=== PATIENT | female | born 1960 | race Caucasian/White ===

== ENCOUNTER 2016-10-17 15:04 | Inpatient (IN) | payer OTHER ==
[~2016-10-17] VITALS: Ht 149.9 cm; Wt 51.0 kg
--- NOTE | ~2016-10-17 | OR ---
PATIENT'S NAME: [facility] AGE: 56 Y [address] ROOM: [place] [address] LOCATION: GPCU ADMIT DATE: 10/17/2016 OR/Procedure Report DISCHARGE DATE: FAMILY PHYSICIAN: Jose Rivero MD ATTENDING PHYSICIAN: Jose Rivero SURGEON: Tj Moulton MD GLASS BREAKER: None. DATE OF PROCEDURE: 10/25/2016 PREOPERATIVE DIAGNOSIS: Laryngeal edema. POSTOPERATIVE DIAGNOSIS: Laryngeal edema. PROCEDURES: 1. Microdirect laryngoscopy with biopsy. 2. Injection of steroids into the larynx. ANESTHESIA: General endotracheal. COMPLICATIONS: None. BLOOD LOSS: 2 mL. SPECIMENS: Right supraglottic tissue for frozen. FINDINGS: Frozen section was negative for malignancy. Edema was noted. INDICATION: The patient is a 56-year-old female, who has been seen as an outpatient with significant supraglottic and laryngeal edema affecting her speech and swallow. She ultimately required admission due to poor p.o. intake as well as chest pain. She was planned for a microdirect laryngoscopy with biopsy after flexible fiberoptic laryngoscopy as an outpatient did reveal significant edema of the supraglottis. Risks, benefits, and alternatives were discussed. She provided informed consent. DESCRIPTION OF PROCEDURE: The patient was brought to the operative suite and placed on the table in supine position. All pressure points were padded. Time-out was performed correctly identifying the patient and procedure. General endotracheal anesthesia was initiated. The patient was rotated 90 degrees counter clockwise. The anterior commissure laryngoscope was utilized for evaluation after a mouth guard was placed. Complete evaluation of the oral cavity, oropharynx, hypopharynx, and larynx was performed. It did not reveal any areas of significant mucosal ulceration, mass, or asymmetry. The previously noted right greater than left supraglottic edema along the arytenoid complex area, epiglottic folds, and posterior commissure was PATIENT'S NAME: [facility] AGE: 56 Y [address] ROOM: [place] [address] LOCATION: GPCU ADMIT DATE: 10/17/2016 OR/Procedure Report DISCHARGE DATE: FAMILY PHYSICIAN: Jose Rivero MD ATTENDING PHYSICIAN: Jose Rivero significantly improved, however, there were remained moderate amount of edema in this location. There was no obvious mucosal changes here in the subglottis. The endotracheal tube was removed for an apneic examination. Biopsies were obtained of the posterior commissure, arytenoid mucosa, and aryepiglottic fold from the right side; and the endotracheal tube was replaced. These were sent for frozen section and the 2 pieces which were examined by the pathologist did not reveal any evidence of malignancy, the rest were submitted for permanent. We then elected to inject 40 mg per mL of Kenalog, a total of 1 mL was injected into the right arytenoid complex as well as left arytenoid complex and central posterior commissure soft tissues. The scope was retracted, the endotracheal tube was left in place. The patient was rotated back to Anesthesia for extubation recovery. MD MALCOM ZAMORA/ash /[id number] d: 10/25/16 1919 t: 11/22/16 1043, OPERATIVE SUMMARY
--- NOTE | ~2016-10-17 | CON ---
PATIENT'S NAME: [facility] AGE: 56 Y [address] ROOM: [place] [id number] LOCATION: GPCU ADMIT DATE: 10/17/2016 Consultation DISCHARGE DATE: 10/27/2016 FAMILY PHYSICIAN: Jose Rivero MD ATTENDING PHYSICIAN: Jose Rivero DATE OF CONSULTATION: 10/20/2016 REFERRING PHYSICIAN: Coral Burkett MD INDICATION: Pneumothorax. HISTORY OF PRESENT ILLNESS: This is a 56-year-old female with history of COPD, tobacco use, and spinal stenosis who presented with chest pain, 15-pound weight loss, and dysphagia. EKG showed non-STEMI; however, she was taken to the labeler and heart cath was negative. She has also had an EGD recently, which was negative. Recent ENT evaluation showed vocal cord swelling and adenopathy. Neck scan revealed a left upper lobe lesion. Biopsy was performed yesterday on the left upper lobe lesion without complications; however, abdominal x-ray performed to confirm Dobhoff placement today, demonstrated worsening left pneumothorax taking up about 30% of the lung. At the time of evaluation, the patient reports shortness of breath and pain with inspiration now. She previously did not have these symptoms yesterday. She otherwise denies cough, wheezing, or hemoptysis. She does report dysphagia. PAST MEDICAL HISTORY: COPD, chronic bronchitis, allergic rhinitis, hypertension, restless legs syndrome, chronic back pain with spinal stenosis, and stress incontinence. PAST SURGICAL HISTORY: Include appendectomy, back surgery, and hysterectomy. ALLERGIES: SEE MAR. MEDICATIONS: See MAR. FAMILY HISTORY: Significant for cancer, COPD, diabetes, and stroke. SOCIAL HISTORY: The patient currently uses 1 pack per day of cigarettes and she has for "many years." She denies alcohol use. PATIENT'S NAME: [facility] AGE: 56 Y [address] ROOM: [address] [place] [id number] LOCATION: GPCU ADMIT DATE: 10/17/2016 Consultation DISCHARGE DATE: 10/27/2016 FAMILY PHYSICIAN: Jose Rivero MD ATTENDING PHYSICIAN: Jose Rivero REVIEW OF SYSTEMS: A 12-point review of systems is negative except for what is noted in HPI. PHYSICAL EXAMINATION: VITAL SIGNS: Blood pressure 124/65, pulse 82, respirations 28, temperature 98.1, she is 91% on room air. GENERAL: This is a 56-year-old female who is well-developed, well-nourished, alert, and oriented x3 and appears in no acute distress at the time of exam. HEENT: Head: Normocephalic and atraumatic. Eyes are clear. NECK: Supple. No adenopathy. No carotid bruits or JVD. LUNGS: Diminished on the left. Clear on the right. HEART: Regular rate and rhythm without murmur, gallop, or rub. ABDOMEN: Soft, nontender, and nondistended. Bowel sounds x4. EXTREMITIES: No cyanosis, clubbing, or edema. DIAGNOSTIC DATA: Sodium 141, potassium 3.5, BUN 8, creatinine 0.9. ASSESSMENT: 1. Left pneumothorax. 2. Left lung nodule 15 mm, status post biopsy. 3. Chronic obstructive pulmonary disease without exacerbation. 4. Dysphagia. 5. Vocal cord swelling. 6. Tobaccoism. PLAN: We will plan for Dr. Ramsey to evaluate and place a chest tube to relieve the left pneumothorax. Further recommendations will be made pending his evaluation and the course of her stay. Thank you for the consult and the opportunity to participate in the patient's care. SHAKA SERNA APRN FOR PAMELA RAMSEY, MR/modl /[id number] d: 11/06/16 0025 t: 11/06/16 1632, CONSULTATION REPORT
--- NOTE | ~2016-10-17 | ECHO ---
Transthoracic Echocardiography Report (TTE) Demographics Patient Name JIM WHITE Date of Study 10/18/2016 Patient Number [id number] Visit Number [id number] Date of 1960 Room Number G6325 Gender Female Number Age 56 year(s) Referring Kwadwo Moncada Chainstitch Tunnel Elastic Operator Maurice Cornejo Physician MD Ana M Amaral RVT Mat Stovall MD Physician Interpreting Kwadwo Moncada Weaving Professor Physician Supervising Ordering Kwadwo Moncada MD/MLP Physician Nurse Stress Steel Box Toe Inserter Conclusions Contractility Score Summary Normal Left Ventricular contractility was noted. Summary The estimated left ventricular ejection fraction is 60%.The left ventricle is normal in size with normal wall thickness and WM. MAC. The aortic valve is mildly sclerotic. There is mild aortic regurgitation by color Doppler. Procedure Type of Study TTE procedure:2D Echocardiogram, M-Mode, Doppler , Color Doppler. Procedure Date Date: 10/18/2016 Start: 01:25 PM Study Location: Inpatient Portable Technical Quality: Adequate visualization Indications:Chest pain. Additional Indications:LV lobe mass Appropriate Use Criteria: 9 Patient Status: Routine HR: 83 bpm BP: 154/78 mmHg Allergies - No known allergies. M-Mode/2D Measurements LV Diastolic Dimension: 3.69 cm LV Systolic Dimension: 2.09 cm LV Septum Diastolic: 0.9 cm LV PW Diastolic: 1.01 cm AO Root Dimension: 2.3 cm Cardiac Output: 3.72 l/min LA Dimension: 2.4 cm EF Estimated: 60 % LVOT: 1.8 cm LVOT VTI: 17.6 cm RV Base: 2.46 cm LV Stroke volume: 44.76 ml RV Length: 6.24 cm TAPSE: 2.22 cm TDI-S': 13.9 cm/s Doppler Measurements AV Peak Velocity: 1.44 m/s MV Peak E-Wave: 0.5 m/s AV Peak Gradient: 8.29 mmHg MV Peak A-Wave: 0.62 m/s AV Mean Gradient: 5 mmHg MV E/A Ratio: 0.81 LVOT Peak Velocity: 1 m/s MV P1/2t: 86 msec AV P1/2t: 546 msec PV Peak Velocity: 0.8 m/s E' Septal Velocity: 0.05 m/s PV Peak Gradient: 2.56 mmHg E' Lateral Velocity: 0.09 m/s A' Septal Velocity: 0.1 m/s A' Lateral Velocity: 0.17 m/s Findings Left Ventricle Normal left ventricle size and function. Right Ventricle Normal right ventricle structure and function. Left Atrium Normal left atrial size. Right Atrium Normal right atrial size. IVC measures .93 cm with inspiratory collapse. Mitral Valve Mild mitral annular calcification. Aortic Valve The aortic valve is mildly sclerotic. There is mild aortic regurgitation by color Doppler. Tricuspid Valve Normal tricuspid valve structure and function. Pulmonic Valve The pulmonic valve is not well visualized. Pericardial Effusion No evidence of pericardial effusion. Miscellaneous Visualized portions of the aortic root and ascending aorta appear normal in size. Pleural Effusion No evidence of pleural effusion. Contractility Score LV regional wall motion:(0-Non visualized 1-Normal 2-Hypokinesis 3-Akinesis 4-Dyskinesis 5-Aneurysm) Signature dtt: Coral Burkett dtd: 10/18/16 1325 Physician Self Edit
--- NOTE | ~2016-10-17 | CON ---
PATIENT'S NAME: [facility] AGE: 56 Y [address] ROOM: [place] [address] LOCATION: GPCU ADMIT DATE: 10/17/2016 Consultation DISCHARGE DATE: FAMILY PHYSICIAN: Jose Rivero MD ATTENDING PHYSICIAN: Jose Rivero DATE OF CONSULTATION: 10/23/2016 REFERRING PHYSICIAN: Coral Burkett MD REFERRING PHYSICIAN: Jose Rivero MD CHIEF COMPLAINT: Dysphagia. HISTORY OF PRESENT ILLNESS: The patient is a 56-year-old female, known to me from visits in the last 2 weeks as an outpatient in my ENT Clinic for dysphagia. She has since been admitted with acute dysphagia, weakness, weight loss as well as chest pain. Remainder of her hospital course from her admission on October 17 to today is detailed in other notes. Since my last visit with her, she states that her dysphagia has worsened. Previously, I had treated her with an outpatient steroid taper, which did not assist her. She suffered a 12-pound weight loss over 2 weeks at my last visit with her last week. I was concerned she would require admission and NG-tube placement. Flexible laryngoscopy had again revealed right greater than left laryngeal edema as well as pooling in the piriform sinus. She also had a left-sided lung nodule, which had been identified on a CT scan in the ER, that required further followup. I am aware that she has undergone a biopsy as well as an NG placement, and I am consulted to follow along during her hospitalization. PAST MEDICAL HISTORY: COPD, chronic bronchitis, allergic rhinitis, hypertension, restless legs, chronic back pain, stress incontinence, tobacco dependence. PAST SURGICAL HISTORY: EGD, appendectomy, back surgery, hysterectomy. MEDICATIONS: See MAR. ALLERGIES: NO KNOWN MEDICAL ALLERGIES. SOCIAL HISTORY: PATIENT'S NAME: [facility] AGE: 56 Y [address] ROOM: [place] [address] LOCATION: GPCU ADMIT DATE: 10/17/2016 Consultation DISCHARGE DATE: FAMILY PHYSICIAN: Jose Rivero MD ATTENDING PHYSICIAN: Jose Rivero She is a long-time smoker starting at age 29, 1 to 2 packs per day, currently reduced now to about 5 cigarettes per day. FAMILY HISTORY: No chronic history of ear, nose, and throat conditions. REVIEW OF SYSTEMS: A 10-point review of systems performed was negative except as per the HPI. PHYSICAL EXAMINATION: VITAL SIGNS: Temperature 98.7, respiratory rate 20, heart rate 76, BP 155/75. GENERAL: She continues to appear quite weak, slightly frail, although with better skin coloration that I had at my last visit with her. She has an NG tube in place. She continues to speak with raspy and slightly weak voice. She has no dysarthria. EARS: Auditory canals are clear. NOSE: NG in the right ear. Otherwise nasal cavity is unremarkable. ORAL CAVITY: Mucous membranes are moist. Tongue is midline and mobile. Oropharynx, widely patent. NECK: Thyroid is not palpable. There is palpable lymphadenopathy scattered in the right neck, specimen level II and III. ASSESSMENT: 1. Laryngeal edema of uncertain etiology, concern for malignancy. 2. Left lung lesion, pathology pending. 3. Acute dysphagia. 4. Weight loss. 5. Tobacco dependence. PLAN: We will continue to plan for microdirect laryngoscopy with biopsy in 2 days on as had been scheduled as an outpatient. She will be n.p.o. and no tube feeds prior. In addition, I discussed that she should continue to attempt oral feedings, and it is okay to maintain nighttime NG-tube feedings at this time. Speech Pathology will follow up with her in the a.m. for a repeat bedside swallow eval, and we will proceed with her feeding schedule from there. I will also start her on a Decadron course for 48 hours to see if this assists with some of her swallowing difficulties temporarily, although the biopsies are pending. All this was discussed with her as well as Dr. Rivero and speech pathologist, and she was in agreement. We did discuss the risks, benefits, and alternatives of the laryngoscopy. She provided informed consent. PATIENT'S NAME: JIM WHITE [facility] AGE: 56 Y [address] ROOM: [address] [place], [place] [address] LOCATION: [facility] ADMIT DATE: 10/17/2016 Consultation DISCHARGE DATE: FAMILY PHYSICIAN: Jose Rivero MD ATTENDING PHYSICIAN: Jose Rivero MD MALCOM ZAMORA/ash /[id number] CC: MD Jose Petersen MD d: 10/23/16 2322 t: 10/25/16 0753, CONSULTATION REPORT
--- NOTE | ~2016-10-17 | ER ---
PATIENT'S NAME: [facility] AGE: 56 Y [address] ROOM: [address] [place] [id number] LOCATION: GPCU ADMIT DATE: 10/17/2016 ER/Outpatient Report DISCHARGE DATE: FAMILY PHYSICIAN: Jose Rivero MD ATTENDING PHYSICIAN: Jose Rivero TIME OF ARRIVAL: 1504 hours. TIME SEEN: 1530 hours. IDENTIFICATION: A 56-year-old female. CHIEF COMPLAINT: Generalized weakness and difficulty swallowing. HISTORY OF PRESENT ILLNESS: The patient is a 56-year-old female who has had some right-sided chest pain, dysphagia, and a 15-pound weight loss over the last couple of months. She has had an evaluation by ENT and noted to have some lymphadenopathy. Had a nasopharyngoscope that showed some swelling of her vocal cords, but no nodules and she had a CT of her neck with IV infiltrated, but did show a stellate lesion in the left upper lung and recommended further follow up with either CT or PET scanning. ALLERGIES: NO KNOWN DRUG ALLERGIES. CURRENT MEDICATIONS: 1. Norvasc. 2. Losartan. 3. Metoprolol. 4. Albuterol. 5. Breo inhaler. 6. Flexeril. 7. [place]. MEDICAL PROBLEMS: Hypertension, spinal stenosis, restless legs syndrome, chronic bronchitis, and COPD. PRIOR SURGERIES: EGD, appendectomy, back surgery, and hysterectomy. PATIENT'S NAME: [facility] AGE: 56 Y [address] ROOM: [address] [place] [address] LOCATION: GPCU ADMIT DATE: 10/17/2016 ER/Outpatient Report DISCHARGE DATE: FAMILY PHYSICIAN: Jose Rivero MD ATTENDING PHYSICIAN: Jose Rivero SOCIAL HISTORY: The patient is . Lives here in [place]. Does not work outside the home. Smokes half pack per day for 27 years. Alcohol use, denies. Drug use, denies. REVIEW OF SYSTEMS: All systems reviewed and negative other than what is noted in the HPI. FAMILY HISTORY: Positive for cancer, COPD, diabetes, and stroke. PHYSICAL EXAMINATION: VITAL SIGNS: Height 4 feet 11 inches and weight 50.9 kg. Blood pressure 159/87, pulse 98, respirations 16, temperature 97, and saturations 95% on room air. GENERAL: A 56-year-old female, in no acute distress. HEENT: Head: Normocephalic, atraumatic. Ears: TMs translucent both ears. Eyes: Pupils equal and reactive to light and accommodation. Extraocular movements intact. Nose: Mucosa pink. No lesions. Mouth: No lesions. Pharynx benign. NECK: Supple. No lymphadenopathy. No thyromegaly. LUNGS: Clear to auscultation. HEART: Regular rate and rhythm. No murmur, rub, or gallop. ABDOMEN: Bowel sounds present. Soft, nondistended, nontender. SKIN: Pantops, warm, and dry. No lesions or rashes noted. NEURO: No focal deficit. DIAGNOSTIC DATA: EKG sinus rhythm at 87 beats per minute. She does have lateral ST-T wave depression and slight in lead 3. No prior EKG available for comparison. Hemoglobin 15.2, hematocrit 45.2, platelets 406, white count 5.6, normal differential. INR 1.1. Sodium 139, potassium 3.2, chloride 100, CO2 of 30, BUN 12, creatinine 0.9, blood sugar 92. Liver enzymes normal. Magnesium 2.1. CPK 81, CK-MB 0.5, troponin 0.052. One view chest x-ray, no acute process, pending radiology over-read. CT scan of the chest, PE protocol, 15 mm stellate nodular lung lesion in the left upper lobe, cannot exclude a malignant lesion, alveolar cell carcinoma could have this type of appearance per Radiology. No PE. IMPRESSION AND PLAN: 1. Stellate left upper lobe lung lesion, recommend biopsy. 2. Dysphagia and generalized weakness. The patient was initiated on IV fluids at 100 mL/h of normal saline. 3. Chronic back pain with spinal stenosis. The patient was given [place] PATIENT'S NAME: JIM WHITE [facility] AGE: 56 Y [address] ROOM: [address] [place], [place] [address] LOCATION: GPCU ADMIT DATE: 10/17/2016 ER/Outpatient Report DISCHARGE DATE: FAMILY PHYSICIAN: Jose Rivero MD ATTENDING PHYSICIAN: Jose Rivreo two tablets here in the ER. 4. Chronic obstructive pulmonary disease. 5. Laryngeal edema followed by ENT. 6. Ischemic EKG changes with elevated troponin. Will be admitted for serial EKG and enzymes. 7. Weight loss and generalized weakness. Plan for admission per Dr. Rivero with cardiology and GI consultation. NAVYA PLAZA MD CAR/modl /[id number] d: 10/18/16 1609 t: 10/18/16 1642, OUTPATIENT REPORT
--- NOTE | ~2016-10-17 | CON ---
PATIENT'S NAME: JIM LAKHANI [facility] AGE: 56 Y [address] ROOM: [address] [place], [place] [address] LOCATION: GPCU ADMIT DATE: 10/17/2016 Consultation DISCHARGE DATE: FAMILY PHYSICIAN: Jose Rivero MD ATTENDING PHYSICIAN: Jose Rivero DATE OF CONSULTATION: 10/18/2016 REFERRING PHYSICIAN: Corla Burkett MD Dear Dr. Rivero: Thank you for asking me to see Mrs Lakhani who is a 56-year-old female patient admitted with chest pain and has [id number]-WS-[id number] elevation UT by EKG and troponin criteria. I am asked to see her in consultation. She had apparently been feeling good about 3 months ago. She started to have trouble with her voice initially and had an ENT consultation followed by difficulty in swallowing which was evaluated by endoscopy. Somewhere along the line, she also started to have significant weight loss of about 12 to 15 pounds with workup showing a left upper lobe mass. In the meantime, for the past 3 days, she has been noticing pains in the right upper extremity radiating to the right neck and right chest for the past 3 weeks. They tend to be intermittent and last for a few minutes, and they are fairly severe, about 8 on a scale of 1 to 10, occurring about 2 times a day, associated with sweating, nausea, and shortness of breath. They seem to occur with any activity, even inside the house walking from one room to another. She does not have any regular exercise program. She denies any paroxysmal nocturnal dyspnea or orthopnea. She had been in Functional Class II up until her chest pain started. There is no history of paroxysmal nocturnal dyspnea or orthopnea. She denies lightheadedness, but does have dizziness with her chest pains. Sometimes, she does get a sense of palpitations. She also has had intermittent ankle swelling for years. She has no history of rheumatic fever. She has been told of a heart murmur as a child. She has grown out of that, according to her. There is no congestive heart failure or atrial fibrillation. There is no prior history of UT, angina, or nitroglycerin use. The patient has a history of hypertension and ongoing tobaccoism. She does not know her cholesterol. She is not diabetic and has no family history of premature coronary artery disease. MEDICATIONS: 1. Hydrocodone/acetaminophen. 2. Amlodipine 10 mg a day. PATIENT'S NAME: [facility] AGE: 56 Y [address] ROOM: [place] [address] LOCATION: GPCU ADMIT DATE: 10/17/2016 Consultation DISCHARGE DATE: FAMILY PHYSICIAN: Jose Rivero MD ATTENDING PHYSICIAN: Jose Rivero 3. Cyclobenzaprine 10 mg every 12 hours. 4. Ipratropium bromide and albuterol inhaler as needed for shortness of breath. 5. Losartan and hydrochlorothiazide 100/12.5 once a day. 6. Metoprolol 25 mg once a day. 7. Omeprazole 20 mg a day. 8. Fluticasone nasal spray. ALLERGIES: NO KNOWN DRUG ALLERGIES. PAST MEDICAL HISTORY: 1. Spinal stenosis, with right leg pain. 2. History of appendectomy. 3. Back surgery. 4. Hysterectomy. 5. Stress incontinence. 6. Restless legs syndrome. 7. Allergic rhinitis. 8. Chronic bronchitis. 9. COPD. SOCIAL HISTORY: The patient is . She denies abusing alcohol. She does smoke. Her appetite has been poor, and she has lost about 20 pounds in 2 months. Sleep is poor. FAMILY HISTORY: No premature coronary artery disease. REVIEW OF SYSTEMS: A 12-point review of systems reveals the following positives: 1. Migraine headaches before. She has not had much of those lately. 2. History of DJD. PHYSICAL EXAMINATION: VITAL SIGNS: Her blood pressure is 180/80, heart rate is 60s, respiration is 18, afebrile. HEENT: Normal. NECK: Supple with no JVD, thyromegaly, lymphadenopathy, or carotid bruit. CARDIAC: PMI is not well located. First and second heart sounds are regular. There are no added sounds or murmurs. CHEST: Clear to auscultation. ABDOMEN: Soft and nontender. Bowel sounds are normally present. EXTREMITIES: No edema. PATIENT'S NAME: [facility] AGE: 56 Y [address] ROOM: [place] [address] LOCATION: GPCU ADMIT DATE: 10/17/2016 Consultation DISCHARGE DATE: FAMILY PHYSICIAN: Jose Rivero MD ATTENDING PHYSICIAN: Jose Rivero CENTRAL NERVOUS SYSTEM: Appears to be intact. ASSESSMENT AND PLAN: A 56-year-old female patient with non ST-segment elevation myocardial infarction who also has a lung mass. After discussing with yourself, and you had a chance to discuss with the radiologist, it appears as if the radiologist's feeling is that we should proceed ahead and take care of her cardiac problems. Her EKG has flat ST depression at rest involving multiple leads, which include almost 8 leads. This usually implies multivessel disease. We will get an echocardiogram today and proceed with left heart catheterization. Again, I appreciate this opportunity to participate in the care of Mrs. Lakhani. MD DEBBIE BHATT/ash /[id number] d: 10/18/16 1540 t: 10/30/16 1326, CONSULTATION REPORT
--- NOTE | ~2016-10-17 | DS ---
PATIENT'S NAME: M[facility] AGE: 56 Y [address] ROOM: [place] [address] LOCATION: GPCU ADMIT DATE: 10/17/2016 Discharge Summary DISCHARGE DATE: 10/27/2016 FAMILY PHYSICIAN: Jose Rivero MD ATTENDING PHYSICIAN: Jose Rivero DISCHARGE DIAGNOSES: 1. Malnutrition due to dysphagia. 2. Pneumothorax. 3. Hypertension. 4. Gastroesophageal reflux disease. 5. Chronic obstructive pulmonary disease. 6. Low potassium. 7. Lung lesion. 8. Elevated troponins with cardiovascular disease. CONSULTS DURING ADMISSION: 1. ENT. 2. Cardiology. 3. Gastroenterology. 4. Cardiothoracic Surgery. 5. PT, OT. 6. Dietary and Nutrition. PROCEDURES DURING ADMISSION: 1. EGD on October 19. 2. Chest tube placement on October 20. 3. Heart catheterization on 10/18. 4. Laryngoscopy on 10/25. 5. Lung lesion biopsy. HOSPITAL COURSE: The patient is a 56-year-old female with COPD, who was having difficulty swallowing, was unable to take in nutrition for almost 2 weeks due to the dysphagia. The patient was admitted and was found to have chest pain with elevated troponins and a heart catheterization which showed cardiovascular disease but no need for intervention. The patient was then cleared for her lung biopsy, which was negative for a lung lesion. The patient then developed a pneumothorax requiring chest tube placement and was monitored by Cardiothoracic Surgery. The patient had ENT follow, and they did a laryngoscopy and restarted her on steroids to help with her dysphagia. Nutrition was consulted, and she had a Dobbhoff placed to supplement her nutrition, and then was slowly weaned off the Dobbhoff after which she could tolerate a soft mechanical diet upon discharge. The patient's potassium was replaced as needed, and her COPD was treated with breathing treatments, and her GERD and hypertension remained stable. PATIENT'S NAME: MURPHY [facility] AGE: 56 Y [address] ROOM: [place] [address] LOCATION: GPCU ADMIT DATE: 10/17/2016 Discharge Summary DISCHARGE DATE: 10/27/2016 FAMILY PHYSICIAN: Jose Rivero MD ATTENDING PHYSICIAN: Jose Rivero DISCHARGE CONDITION: Stable. DISPOSITION: Home. DISCHARGE MEDICATIONS: Please see list. DISCHARGE INSTRUCTIONS: She is to follow up with Dr. Rivero in 2 weeks and follow up with Cardiology and ENT as directed. MD ELIZABETH CORTEZ/ash /[id number] d: 11/12/16 0117 t: 11/22/16 1253, DISCHARGE SUMMARY
--- NOTE | ~2016-10-17 | CATH ---
Cardiac Diagnostic + PCI Report Demographics Patient Name CHRISTOPHER Wolf Gender Female Date of 1960 Age 56 year(s) Patient Number [id number] Date of Study 10/18/2016 Visit Number [id number] Room Number G63[address] [place] [id number] Ht 149.86 cm Wt 52.9 kg Referring Mat Stovall Primary Physician Physician Performing Kwadwo Secondary Physician Physician Coral WOODWARD Diagnostic Kwadwo Assisting Physician Physician Coral WOODWARD Interventional Kwadwo Physician Condenser Setter Physician Coral WOODWARD Findings and Conclusions Diagnostic Findings and Conclusion Calcification involving proximal coronaries LVEDP = 1 Diagnostic Recommendations Moderate one vessel coronary artery disease OK for biopsy of lung lesion Aggressive secondary preventive measures Stop smoking Interventional Findings and Conclusion IFR = 1.0 Procedure Description The patient was brought to the diagnostic cardiac catheterization-EP laboratory in the fasting, non-sedated state. Informed consent was obtained in the written and verbal form after the risks and benefits were explained. The patient had no further questions and agreed to proceed. The planned puncture-incision site(s) were shaved and prepped with ChloraPrep and draped in the usual sterile manner. Conscious sedation, supplemental oxygen, and pain control medications were delivered by a registered nurse under physician guidance. Surface ECG rhythm, blood pressure measurement, and pulse oximetry were monitored throughout the procedure. Arterial access. The access site was infiltrated with lidocaine. The vessel was entered with the Seldinger technique. A sheath was advanced into the vessel and used for catheter placement. Selective left coronary angiography. A catheter was advanced into the left coronary vessel ostium under Fluoroscopic guidance. Contrast was injected by hand. Images were obtained in multiple projections. Selective right coronary angiography. A catheter was advanced into the right coronary vessel ostium under fluoroscopic guidance. Contrast was injected by hand. Images were obtained in multiple projections. Left heart catheterization. A catheter was advanced across the aortic valve to the left ventricle under fluoroscopic guidance. Resting hemodynamics were obtained. iFR measurement was performed. The vessel was entered with a guiding catheter. The iFR wire was normalized and then advanced across the lesion. Measurements were taken. Arterial artery hemostasis was achieved. The patient was transferred to a regular nursing floor via cart accompanied by a nurse. The patient left the laboratory in stable condition. Diagnostic Cath Status: Urgent Interventional Cath Status: Urgent Procedure Procedure Type Diagnostic procedure:Angiography:, Coronary Angios w/LHC PCI procedure:Additional Imaging:, FFR/iFR:, Initial Vessel The procedure was explained in detail to the patient. Risks, complications and alternative treatments were reviewed. Written consent was obtained. Angiographic Findings Dominance: Right Cardiac Arteries and Lesion Findings LMCA: Normal (0% Stenosis).Luminal irregularities LAD: Diffuse irregularity.Mild diffuse disease, Type III; diagonals are small LCx: Diffuse irregularity.Mild to moderate diffuse disease; OM1 is large RCA: Diffuse irregularity, Focal stenosis, Multiple stenosis and Acute occlusion.Moderate diffuse disease; Mid RCA 70-80%, IFR = 1.0 Lesion on Mid RCA: Distal subsection.70% stenosis 10 mm length . Pre procedure PAULINO III flow was noted. A good run off was present.Culprit lesion. Devices used - Innovitirata Pressure Wire. Number of passes: 1. Coronary Tree Procedure Data Procedure Date Date: 10/18/2016Start: 02:32 PMEnd: 03:47 PM Entry Locations - Retrograde Percutaneous access was performed through the Right Femoral artery (Primary location). A 7 Fr sheath was inserted. Hemostasis was successfully obtained using Perclose ProGlide (De [place] Cruz). Closure Comments: Deployed by Wilfred Wing.. Procedure Medications Order and Administration + + + + + !Time !Medication !Dosage !Route ! + + + + + !10/18/2016 02:28 !Fentanyl !50 mcg !I.V. ! !PM ! ! ! ! + + + + + !10/18/2016 02:32 !Versed !1 mg !I.V. ! !PM ! ! ! ! + + + + + !10/18/2016 02:50 !Angiomax (Bivalirudin) !40 mg !I.V. bolus ! !PM !(ACC_5) ! ! ! + + + + + !10/18/2016 02:50 !Angiomax (Bivalirudin) !1.75 mg/kg/hr!I.V. drip ! !PM !(ACC_5) ! ! ! + + + + + !10/18/2016 03:07 !Angiomax (Bivalirudin) ! !I.V. drip ! !PM !(ACC_5) ! ! ! + + + + + Devices Used - A6 Fr. BS JR 4 Diag. Catheterwas used for:Right coronary angiography. - A6 Fr. BS JL 4 Diag. Catheterwas used for:Left coronary angiography. - A6 Fr. JR4 Guide Catheterwas used for:Fractional Flow Gresham measurments. Contrast Material - Isovue 17181 ml Fluoroscopy Time: Diagnostic: 5:42 minutes. Total: 5:42 minutes. Fluoroscopy Dose: Diagnostic: 790 mGy. Total: 790 mGy. Estimated Blood Loss: 30 ml. Medical History Allergies - No known allergies. Risk Factors The patient risk factors include:hypertension, chronic lung disease, last creatinine: 0.6 mg/dl, creatinine clearance: 86.39 ml/min and Current/Recent(w/in 1 year) tobacco use. Admission Data Admission Date: 10/17/2016 Admission Time: 06:41 PM Admit Source: Emergency department Insurance Payors: [employer] insurance. Admission Medications + +------+------+ + + + + !Medication !Dosage!Times !Last !Last !Administered !Comments ! ! ! !Per !Delivery !Delivery ! ! ! ! ! !Day !Date !Time ! ! ! + +------+------+ + + + + !Beta ! ! ! ! ! ! ! !Jasper ! ! ! ! ! ! ! !(any) ! ! ! ! ! ! ! + +------+------+ + + + + Clinical Evaluation Leading to Procedure - The patient's CAD presentation was assessed as: Unstable angina. - The patient's anginal syndrome during the past two weeks was assessed as: Class II according to the [place] Cardiovascular Society Classification System (CCS). Anti-anginal medications were prescribed during the past two weeks. The medication is: Beta Blockers. Hemodynamics Condition: Rest O2 Consumption: Estimated: 146.68Heart Rate: 81 bpm Pressures (mmHg) +-----+ + !Site !Pressure ! +-----+ + !LV !151/-4 ,1 ! +-----+ + !LV !158/-6 ,0 ! +-----+ + !AO !155/76 (106) ! +-----+ + !LV !164/-5 ,1 ! +-----+ + !AO !160/79 (111) ! +-----+ + Valve Gradients and Areas + +---------+---------+---------+ +---------+ + !Valve !Peak !Mean !Area !Index !Flow !Source ! + +---------+---------+---------+ +---------+ + !Aortic !10 !9 ! ! ! ! ! + +---------+---------+---------+ +---------+ + !Aortic !10 !9 ! ! ! ! ! + +---------+---------+---------+ +---------+ + Shunts Oxygen Values O2 Capacity 206.72 O2 Consumption 146.68 Signatures dtt: Coral Burkett: 10/18/16 1432 Physician Self Edit
--- NOTE | ~2016-10-17 | CON ---
PATIENT'S NAME: [facility] AGE: 56 Y [address] ROOM: [place] [address] LOCATION: GPCU ADMIT DATE: 10/17/2016 Consultation DISCHARGE DATE: FAMILY PHYSICIAN: Jose Rivero MD ATTENDING PHYSICIAN: Jose Rivero DATE OF CONSULTATION: 10/19/2016 REFERRING PHYSICIAN: Coral Burkett MD REFERRING PROVIDER: Jose Rivero MD REASON FOR CONSULTATION: Dysphagia. HISTORY OF PRESENT ILLNESS: This is a very pleasant, 56-year-old female who was recently admitted for chest pain, dysphagia, and weight loss. The patient does have known history of COPD with an approximate 12-pound weight loss, unintentional. The patient does state that she has been unable to swallow any type of solid foods. Per the patient's significant other who was at bedside during our interview, she has been only taking in liquids as well as yogurt. The patient denies any painful swallowing. No abdominal pain, chest pain, chest pressure, shortness of breath, fever, chills, or night sweats. She also denies any history of abdominal pain, constipation, or diarrhea. She recently has been under the care of Dr. Moulton with ENT for vocal cord edema and recently prescribed a steroid. The patient did undergo a colonoscopy approximately 2 years ago. There was discussion regarding whether an upper endoscopy was performed at that time, though according to the patient and the patient's significant other, it appears that the patient has only been scoped per ENT with no history of upper endoscopy. The patient was also recently noted to have a lung nodule. She did undergo a lung nodule biopsy per Radiology prior to our interview. PAST MEDICAL HISTORY: COPD, chronic bronchitis, allergic rhinitis, hypertension, restless legs syndrome, chronic back pain with spinal stenosis, stress incontinence. PAST SURGICAL HISTORY: Appendectomy, back surgery, and hysterectomy. SOCIAL HISTORY: The patient currently uses tobacco on a day-to-day basis. She denies any alcohol or illicit drug use. FAMILY HISTORY: PATIENT'S NAME: [facility] AGE: 56 Y [address] ROOM: [address] [address] LOCATION: GPCU ADMIT DATE: 10/17/2016 Consultation DISCHARGE DATE: FAMILY PHYSICIAN: Jose Rivero MD ATTENDING PHYSICIAN: Jose Rivero Significant for cancer, COPD, diabetes mellitus type 2, and stroke. ALLERGIES: NO KNOWN MEDICATION ALLERGIES. CURRENT MEDICATIONS: Please refer to the medication administration record. REVIEW OF SYSTEMS: A 10-point review of systems was completed, all were negative except for those identified in the History of Present Illness. PHYSICAL EXAMINATION: GENERAL: A pleasant, 56-year-old female, lying in bed, who appears to be in no acute distress. VITAL SIGNS: Temperature 98.1, pulse is 70, respirations of 16, blood pressure 134/84, and oxygen saturation is 96% on room air. SKIN: Brock, warm, and dry. No jaundice. HEENT: Head is normocephalic and atraumatic. Pupils are equal, round, and reactive to light. Sclerae are clear, nonicteric. Oral mucosa is pink and moist. No thyromegaly. NECK: Soft and supple. CARDIOVASCULAR: Regular. Normal S1 and S2. RESPIRATORY: Respirations even and unlabored. Lungs clear to auscultation. ABDOMEN: Soft, round, nontender, and nondistended. Bowel sounds positive x4 quadrants. MUSCULOSKELETAL: No muscle weakness or atrophy. EXTREMITIES: No clubbing, cyanosis, or edema. NEUROLOGICAL: Grossly nonfocal. LABORATORY AND DIAGNOSTIC DATA: White blood cell count 5.6, hemoglobin of 15.2, hematocrit of 45.2, and platelets of 406. Chemistry panel includes a glucose of 89, BUN of 7, creatinine 0.7, sodium 142, potassium of 3.4, chloride of 107, and CO2 of 27. Lipid panel did include a cholesterol of 157, triglycerides of 126, HDL of 60, VLDL of 25, and LDL of 72. Prothrombin time of 11.4, INR is 1.1, and PTT of 28. ASSESSMENT AND PLAN: Again, this is a very pleasant, 56-year-old female whom we were asked to see in consultation for dysphagia. The patient recently has had weight loss as well as been unable to swallow solid foods. At this time, it is recommended for the patient to undergo an upper endoscopy for further evaluation of the etiology of dysphagia. This was discussed with Dr. Rivero as well as Dr. Burkett per Dr. Ade Lemus. Risks, benefits, and alternatives of the PATIENT'S NAME: [facility] AGE: 56 Y [address] ROOM: [address] [address] LOCATION: [facility] ADMIT DATE: 10/17/2016 Consultation DISCHARGE DATE: FAMILY PHYSICIAN: Jose Rivero MD ATTENDING PHYSICIAN: Jose Rivero procedure were discussed with the patient as well as the significant other per Dr. Ade Lemus. Further recommendations status post upper endoscopy. Thank you for this consult and allowing us to participate in the care of this patient. We will continue to monitor, evaluate, and treat as appropriate. KELLY DUENAS, JEWELRY ESTIMATOR FOR ADE LEMUS MD MMF/modl /[id number] d: 10/19/16 1255 t: 11/16/16 1102, CONSULTATION REPORT
--- NOTE | ~2016-10-17 | OR ---
PATIENT'S NAME: JIM LAKHANI [facility] AGE: 56 Y [address] ROOM: [address] [address] LOCATION: GPCU ADMIT DATE: 10/17/2016 OR/Procedure Report DISCHARGE DATE: 10/27/2016 FAMILY PHYSICIAN: Jose Rivero MD ATTENDING PHYSICIAN: Jose Rivero SURGEON: Anderson Stout DO DRAFTING TEACHER: DATE OF PROCEDURE: 10/20/2016 PREOPERATIVE DIAGNOSIS: Left pneumothorax, status post CT guided lung biopsy. POSTOPERATIVE DIAGNOSIS: Left pneumothorax, status post CT guided lung biopsy. PROCEDURE PERFORMED: Placement of apical Pneumocath catheter. BRIEF HISTORY: Mrs. Lakhani is a 56-year-old white female who underwent a CT- guided biopsy of a left upper lobe mass on 10/19/2016. She recently had an x- ray which showed delayed onset of pneumothorax. She is somewhat short of breath especially with an attempted deeper inspiration. Therefore, we have elected placement of Pneumocath catheter. DESCRIPTION OF PROCEDURE: Anterior chest wall was sterilely prepped and draped in usual fashion. 1% lidocaine was used to infiltrate the skin wheal and the deep tissues, approximately the second intercostal space, and the midclavicular line. The pleural space was accessed with a needle and noting bubbles in the chamber of the syringe, and a Pneumocath catheter was advanced over the needle, and the needle was withdrawn. Chest tube was placed to suction. Aggressive bubbling was noted for approximately the first 45 seconds to 1 minute and then bubbling intermittently after that. The chest tube was secured to the skin with 2-0 silk and a sterile dressing was applied. A chest- ray is pending for placement. DO PAULINA VERGARA/danilol /[id number] d: 11/02/16 1840 t: 11/03/16 1141, OPERATIVE SUMMARY
--- NOTE | ~2016-10-17 | HP ---
PATIENT'S NAME: [facility] AGE: 56 Y [address] ROOM: [place] [address] [facility] ADMIT DATE: 10/17/2016 History & Physical DISCHARGE DATE: FAMILY PHYSICIAN: Jose Rivero MD ATTENDING PHYSICIAN: Jose Rivero DATE OF SERVICE: CHIEF COMPLAINT: 1. Chest pain. 2. Dysphagia. 3. Weight loss. HISTORY OF PRESENT ILLNESS: The patient is a 56-year-old female with a known history of COPD who in recent weeks has had a 12-pound weight loss. She states she is unable to swallow any foods. The patient recently had EGD and also saw ENT and was noted to have lymphadenopathy of her neck. The patient had a CT performed which showed a suspicious lesion in her left lung. The patient also was complaining of chest pain and had elevated troponins that are trending down and no longer has chest pain. The patient denies any shortness of breath, fevers, chills, nausea, vomiting, abdominal pain, constipation, diarrhea, or rash. PAST MEDICAL HISTORY: 1. COPD. 2. Chronic bronchitis. 3. Allergic rhinitis. 4. Hypertension. 5. Restless legs syndrome. 6. Chronic back pain with spinal stenosis. 7. Stress incontinence. PAST SURGICAL HISTORY: 1. EGD. 2. Appendectomy. 3. Back surgery. 4. Hysterectomy. MEDICATIONS: Please see list. ALLERGIES: NO KNOWN MEDICAL ALLERGIES. SOCIAL HISTORY: PATIENT'S NAME: [facility] AGE: 56 Y [address] ROOM: [place] [address] LOC[facility]: [facility] ADMIT DATE: 10/17/2016 History & Physical DISCHARGE DATE: FAMILY PHYSICIAN: Jose Rivero MD ATTENDING PHYSICIAN: Jose Rivero The patient started tobacco at age 29, currently every day, and states she is only smoking five cigarettes right now. FAMILY HISTORY: Significant for cancer, COPD, diabetes mellitus type 2, and stroke. REVIEW OF SYSTEMS: A complete review of systems was obtained, pertinent positives and negatives as mentioned in the HPI. OBJECTIVE: VITAL SIGNS: Temperature 97.0, pulse 98, respirations 16, blood pressure 159/87. GENERAL: The patient is alert and oriented. Appears in no acute distress. HEENT: Head: Normocephalic, atraumatic. Eyes: Conjunctivae clear. No scleral icterus. Mouth and Oropharynx: Grossly moist. No lesions or exudates. NECK: Supple. No lymphadenopathy or thyromegaly. HEART: Regular rate and rhythm. No rubs, murmurs, or gallops. LUNGS: Decreased breath sounds bilaterally with no crackles or wheezes. ABDOMEN: Bowel sounds present. Nontender. EXTREMITIES: No cyanosis, clubbing, or edema. VASCULAR: Pulses +2 and equal bilaterally. SKIN: No rashes. NEUROLOGIC: Cranial nerves 2 through 12 grossly intact. MUSCULOSKELETAL: Full range of motion of lower extremities. LABORATORY DATA: Troponin was elevated at 0.052 and 0.046. Her potassium was low at 3.2 and rest of her CBC and CMP were normal. CT showed left lung lesion and EKG was abnormal. ASSESSMENT: 1. Chest pain with elevated troponin. 2. Chronic obstructive pulmonary disease. 3. Lung lesion. 4. Dysphagia with malnutrition due to decreased intake of calories. 5. Weight loss unintentional. 6. Hypertension. 7. Restless legs syndrome. 8. Chronic back pain. 9. Hypokalemia. PLAN: At this time, we will trend out her enzymes and place her on telemetry and PATIENT'S NAME: [facility] AGE: 56 Y [address] ROOM: [place] [address] [facility] ADMIT DATE: 10/17/2016 History & Physical DISCHARGE DATE: FAMILY PHYSICIAN: Jose Rivero MD ATTENDING PHYSICIAN: Jose Rivero have Cardiology follow. We will replace her potassium and also keep her on her home medications for her COPD and hypertension and restless legs syndrome. We will treat her back pain with [place] as needed and for nutrition, we will do clears and then consult Nutrition in the morning about possible Dobhoff. We will also discuss with Radiology about getting a biopsy of her lung lesion. MD ELIZABETH CORTEZ/ash /[id number] D: [id number] T: [id number] HISTORY & PHYSICAL
[2016-10-17 16:08] LABS: BASOPHIL # 0.1 K/uL (0.0-0.2); BASOPHIL % 0.9 %; EOSINOPHIL # 0.1 K/uL (0.0-0.5); EOSINOPHIL % 2.3 %; HEMATOCRIT 45.2 % (33.0-46.0); HEMOGLOBIN 15.2 g/dL (10.0-15.0); IMMATURE GRANULOCYTE % 0.2 %; LYMPHOCYTE # 2.8 K/uL (0.8-4.0); LYMPHOCYTE % 49.8 %; MCH 29.9 pg (27.0-34.0); MCHC 33.6 gm/dL (32.0-36.5); MCV 88.8 fl (83.0-98.0); MONOCYTE # 0.5 K/uL (0.0-1.0); MONOCYTE % 9.1 %; MPV 10.1 fl (9.4-12.4); NEUTROPHIL # (ANC) 2.1 K/uL (1.8-7.8); NEUTROPHIL % 37.7 %; NRBC % 0 /100WBC (0-0.00); PLATELET COUNT 406 K/uL (150-450); RBC 5.09 M/uL (3.50-5.50); RDW-CV 13.2 % (11.9-14.6); WBC 5.6 K/uL (4.0-11.0)
[2016-10-17 16:16] LABS: INR - (THERAPEUTIC) 1.1 (0.9-1.1); PROTIME 11.4 SECONDS (9.6-11.1); PTT 28 SECONDS (25-32)
[2016-10-17 16:26] LABS: ALBUMIN 3.9 gm/dL (3.5-5.0); ALK PHOS 75 IU/L (33-138); ALT 15 IU/L (12-78); ANION GAP 12.2 (10.0-19.0); AST 22 IU/L (10-40); BLOOD UREA NITROGEN 12 mg/dL (6-24); CALCIUM 9.4 mg/dL (8.5-10.5); CHLORIDE 100 mMol/L (96-110); CO2 30 mMol/L (22-32); CPK 81 IU/L (21-215); CREATININE 0.9 mg/dL (0.5-1.1); ESTIMATED GFR (MDRD EQUATION) > 60; MAGNESIUM 2.1 mg/dL (1.3-2.6); POTASSIUM 3.2 mMol/L (3.7-5.1); SODIUM 139 mMol/L (135-145); TOTAL PROTEIN 7.6 g/dL (6.0-8.4)
[2016-10-17 16:30] LABS: TOTAL BILIRUBIN 0.3 mg/dL (0.0-1.5)
[2016-10-17 18:50] LABS: CPK 73 IU/L (21-215)
[2016-10-17] MEDS ORDERED: NORCO 5-325 TA1 EACH PO (20:08)
[2016-10-17] MEDS ORDERED: NORVASC5 MG PO (20:08)
[2016-10-17] MEDS ORDERED: FLEXERIL10 MG PO (20:09)
[2016-10-17] MEDS ORDERED: TOPROL XL 5050 MG PO (20:11)
[2016-10-17] MEDS ORDERED: DUONEB INH (20:11)
[2016-10-17] MEDS ORDERED: LOSARTAN-HCTZ1 EACH PO (20:11)
[2016-10-17] MEDS ORDERED: PRILOSEC20 MG PO (20:12)
[2016-10-17] MEDS ORDERED: BREO ELLIPTA 11 EACH INH (20:16)
[2016-10-17 23:35] LABS: CPK 62 IU/L (21-215)
--- NOTE | 2016-10-18 02:30 | NUR ---
Patient admitted from ER with difficulty swallowing, swelling to the right side of her neck, and pain to her neck and right shoulder. Patient has been seen by and (ENT) over the past six weeks for laryngeal edema. Patient has had CT of chest both with and without contrast both of which showed a 15mm nodule on her left upper lobe. Biopsy is recommended, waiting for Radiology to determine if Pulmonology or interventional radiololgy should do biopsy vs bronch. Nutritional consult in the AM as patient has not been able to swallow solids for the past few weeks. Patient has had a 16-18 lbs weight loss. PIV to L)hand on admission. VSS on RA. Continuous pulse ox monitoring.
[2016-10-18 04:41] LABS: ANION GAP 17.7 (10.0-19.0); BLOOD UREA NITROGEN 10 mg/dL (6-24); CALCIUM 8.7 mg/dL (8.5-10.5); CHLORIDE 105 mMol/L (96-110); CO2 21 mMol/L (22-32); CREATININE 0.6 mg/dL (0.5-1.1); ESTIMATED GFR (MDRD EQUATION) > 60; POTASSIUM 3.7 mMol/L (3.7-5.1); SODIUM 140 mMol/L (135-145)
[2016-10-18 04:42] LABS: CPK 68 IU/L (21-215)
--- NOTE | 2016-10-18 05:10 | NUR ---
Significant Event:A/Ox3. Afebrile. RA sats >90%, no c/o difficulty breathing. SR HR 80s. SBP 169-138. Cardiac enzymes no changes. Clear liquid diet, tolerating well. PIV to L)hand and R)wrist. KCL infused slowly d/t burning PIV still had good blood return. NS now infusing at 75ml/h. Follow up:Cardio consult this AM. Nutrition consult. ?possible biopsy.
--- NOTE | 2016-10-18 12:36 | NUR ---
Introduced self and role of care management to pt. Pt lives in [place] with her of 27 years. She does not work due to back issues. She is able to get around at home and do her own adl's. At this time will continue to follow and assist with any dc needs.
--- NOTE | 2016-10-18 16:27 | NUR ---
Significant Event: VSS AND RA. DENIES PAIN. HEART CATH DONE THIS AFTERNOON WITHOUT INTERVENTION. PLAN FOR LT)LUNG BX WITH RADIOLOGY TOMORROW; NPO P MN. PET SCAN PLANNED FOR TOMORROW WAS CANCELLED DUET TO HAVING THE BX DONE. BACK TO FLOOR AT 1600, RT)GROIN SITE REMAINS SOFT AND C/D/I P PERCLOSE AND MANUAL PRESSURE IN MANIFEST CLERK. RD CONSULT FOR RECOMMENDATION ON TF FOR THE FUTURE. Follow up: CONTINUE PLAN OF CARE; NPO P MN.
--- NOTE | 2016-10-19 04:39 | NUR ---
Significant Event: Patient alert and oriented x3. SBP 120s-160s this shift. All other vital signs stable. On room air. 650mg Tylenol given x1 with relief for headache. Zofran given x1 for nausea and emesis after getting up to bathroom once off bedrest. Right groin site C/D/I. Right hand IV saline locked. Up with stand-by assist. NPO since midnight. at bedside. Patient calm and cooperative with all cares. Follow up: Left Lung Biopsy today.
[2016-10-19 09:25] LABS: ANION GAP 11.4 (10.0-19.0); BLOOD UREA NITROGEN 7 mg/dL (6-24); CALCIUM 8.8 mg/dL (8.5-10.5); CHLORIDE 107 mMol/L (96-110); CO2 27 mMol/L (22-32); CREATININE 0.7 mg/dL (0.5-1.1); ESTIMATED GFR (MDRD EQUATION) > 60; POTASSIUM 3.4 mMol/L (3.7-5.1); SODIUM 142 mMol/L (135-145)
--- NOTE | 2016-10-19 17:01 | NUR ---
Significant Event: LEFT LUNG BIOPSY THIS MORNING WITH DR POWELL. SITE TO LEFT UPPER CHEST COVERED WITH GAUZE/TEGADERM, C/D/I. C/O PAIN AT SITE RADIATING DOWN LATERAL CHEST AND TO UPPER NECK. RELIEVED WITH 1 TAB OF NORCO GIVEN AT 1146. TOLERATING LIQUIDS WITH CARDIAC DIET D/T DIFFICULTY SWALLOWING. DR LEMUS CONSULTED TODAY WITH PLAN FOR EGD AND POSSIBLE DILATION IN AM. PERMITS ON CHART AND SIGNED. NPO AFTER 0400. L) HAND AND R) WRIST PIV SL'D. Follow up: EGD IN AM. NPO AFTER 0400. PAIN CONTROL TO BIOPSY SITE.
--- NOTE | 2016-10-20 04:33 | NUR ---
Significant Event: Patient alert and oriented x3. Vital signs stable. On room air. Left chest biopsy site dressing C/D/I. Complained of pain to site. 1 tab Waggoner given x1 at 0230 and Flexeril given x1 at 3 with relief. Right groin site open to air. Patient coughed up blood tinged sputum x2 this shift. Harsh cough continues. Difficulty swallowing continues. NPO since 0400. at bedside. Calm and cooperative with all cares. Follow up: Labs this morning. EGD today with possible dilation. Will continue to monitor pain.
[2016-10-20 05:01] LABS: ANION GAP 10.5 (10.0-19.0); BLOOD UREA NITROGEN 8 mg/dL (6-24); CALCIUM 8.8 mg/dL (8.5-10.5); CHLORIDE 105 mMol/L (96-110); CO2 29 mMol/L (22-32); CREATININE 0.9 mg/dL (0.5-1.1); ESTIMATED GFR (MDRD EQUATION) > 60; POTASSIUM 3.5 mMol/L (3.7-5.1); SODIUM 141 mMol/L (135-145)
--- NOTE | 2016-10-20 10:53 | NUR ---
A-NUTRITION F/U LUNG BIOPSY YESTERDAY. EGD TODAY W/POSSIBLE DILATION LABS: NA 141, K+ 3.5, GLU 102, BUN 8, STRAPPER OPERATOR 0.9, ALB 3.9 MEDS: K-TAB, NORVASC DIET RX: NPO. PRIOR TO NPO STATUS, PO INTAKE WAS BITES/SIPS-25%. RECEIVING VANILLA ENSURE TID W/MEALS. 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 I-1)VANILLA ENSURE TID TO RESUME WHEN DIET ADVANCED 2)IF TF DESIRED, REC. DOBHOFF WITH JEVITY 1.5 AT A GOAL RATE OF 40 ML/HR W/175 ML H20 EVERY 6 HOURS. M/E-GOAL: PO INTAKE 25-50% BY NEXT F/U 1)F/U DIET RX, PO INTAKE, SUPPLEMENT, AND POC IN 2-4 DAYS 2)ASSIST NEEDED
--- NOTE | 2016-10-20 16:39 | NUR ---
Significant Event: A/Ox3. SBP- 120-140s. P-80s. Afebrile. Room air with saturations in low 90s. Tahcypnic at times. Up SBA. EGD this AM with biopsys taken. No dialation needed. ninoska initiated. Jevity 1.5 with a goal rate of 40ml/hr and flushes of 175 Q6HR one placement is verified. Patient is pleasant and cooperative with cares.
--- NOTE | 2016-10-20 18:30 | NUR ---
Patient had dobhoff placed. Dr. Ramirez called and said to advance the dobhoff 6in. Xray was ordered to re-verify placement and shortly after radiology called and asked if we needed to verify placement. They also said there would not be a radiologist to read the x-ray because he was gone for the night and not reading any x-rays. I asked if they could send it to [facility] but they said they couldn't not. I plan to ask Dr. Stout to verify placement when he checks his chest tube placement after insertion.
--- NOTE | 2016-10-21 05:00 | NUR ---
Significant Event: A/O x3. Afebrile. Pain in left side, gave morphine x2, norco x2. VSS on RA. SBP 110s-130s. Chest tube placed by Bibler in upper left chest area. on continuous suction. Dobhoff placement confirmed. Jevity 1.5 running @ 10ml/hr with 125ml water flush q 6 hours. Goal to run Jevity 40ml an hour. 200ml Emesis occured after first residual check. Follow up: Continue to monitor per plan of care.
[2016-10-21 05:33] LABS: ANION GAP 11.3 (10.0-19.0); BLOOD UREA NITROGEN 11 mg/dL (6-24); CALCIUM 8.9 mg/dL (8.5-10.5); CHLORIDE 103 mMol/L (96-110); CO2 27 mMol/L (22-32); CREATININE 0.8 mg/dL (0.5-1.1); ESTIMATED GFR (MDRD EQUATION) > 60; POTASSIUM 3.3 mMol/L (3.7-5.1); SODIUM 138 mMol/L (135-145)
--- NOTE | 2016-10-21 18:30 | NUR ---
Significant Event: A/O x3, cooperative with cares. VSS, SBPs 120-140s, HRs 70s, on room air. 2 mg of morphine given x2, last at 1534, for c/o pain r/t L) sided chest tube; relief noted. Tube feeding increase to 20 ml/hr at first assessment; approximately an hour after patient c/o nausea, feeling hot et was pale. Residual checked et was discoved that patient had 125 ml of bile looking fluid in stomach; contents didn't resemble tube feeding. 120 ml of residual discarded; patient given Zofran at 0844 et fan brought to room; relief was noted et no further c/o nausea. Tube feeding goal fo 40 ml/hr achieved this shift; patient tolerating well without residual. L) sided chest tube placed to water seal; no output this shift. Up with assist of 1 to bathroom et chair. Follow up: notify Dr. David Moulton, ENT, in AM
[2016-10-22 04:57] LABS: ANION GAP 13.4 (10.0-19.0); BLOOD UREA NITROGEN 9 mg/dL (6-24); CALCIUM 8.5 mg/dL (8.5-10.5); CHLORIDE 107 mMol/L (96-110); CO2 26 mMol/L (22-32); CREATININE 0.8 mg/dL (0.5-1.1); ESTIMATED GFR (MDRD EQUATION) > 60; SODIUM 142 mMol/L (135-145)
[2016-10-22 05:01] LABS: POTASSIUM 4.4 mMol/L (3.7-5.1)
--- NOTE | 2016-10-22 05:04 | NUR ---
Significant Event: A/O x3. Afebrile. Better pain control tonight. Gave morphine x2 and norco x1 for pain in left side. Afebrile. VSS on RA. Left CT with less than 5ml of drainage on water seal suction. Tube feeding running @ 40ml/hr with 125ml flush q 6hrs. Up to BA x1. R) hand IV infiltrated, started new IV in R) upper arm, good blood return. NS w/ 40KCL running @ 100/hr continuous. Cooperative with cares. Follow up: Continue to monitor per plan of care.
--- NOTE | 2016-10-22 16:43 | NUR ---
Significant Event: A/O x3, cooperative with cares. VSS, SBPs 130-160s, HRs 70-80s, on room air. 1 tab of Merino given at 0738 for c/o pain to L) side; relief noted. L) sided chest tube removed this shift. Tube feeding continues at goal rate of 40ml/hr; residuals are all over the place. On 2nd assessment residual was 240ml, all of which was discarded; it appeared to be mostly bile et not tube feed. Residual at 3rd assessment was 57, returned et appeared to be mostly tube feeding. No c/o nausea; not eating has only taken ice chips et applesauce with meds. Up with assist to chair et bathroom. Follow up:
--- NOTE | 2016-10-23 05:28 | NUR ---
Significant Event: Patient is alert and oriented X3. Vital signs stable. On room air. 1 tab Emerson given at 2300 for leg pain. Left chest tube site dressing clean/dry/intact. Tube feeding continues at goal of 40ml/hr. Residuals were 15ml, 5ml, and 0ml. Pudding and popsicle eaten this shift. No complaints of nausea. Up with minimal assist. Calm and cooperative with all cares. Very little sleep this shift. Follow up: Chest X-Ray this shift. Continue per plan of care.
[2016-10-23 06:08] LABS: ANION GAP 10.4 (10.0-19.0); BLOOD UREA NITROGEN 9 mg/dL (6-24); CALCIUM 8.9 mg/dL (8.5-10.5); CHLORIDE 109 mMol/L (96-110); CO2 26 mMol/L (22-32); CREATININE 0.6 mg/dL (0.5-1.1); ESTIMATED GFR (MDRD EQUATION) > 60; POTASSIUM 4.4 mMol/L (3.7-5.1); SODIUM 141 mMol/L (135-145)
--- NOTE | 2016-10-23 11:30 | NUR ---
Supportive visit with pt today. She is doing fine and waiting on test results and plans. Will assist as needed.
--- NOTE | 2016-10-23 13:18 | NUR ---
A-NUTRITION F/U VISITED W/PT AND PT'S RE: APPETITE, SUPPLEMENTS, ETC. PT REPORTS THAT SHE IS DRINKING ABOUT 1/2 OF HER ENSURE ENLIVE AT EACH MEAL. PT PREFERS STRAWBERRY FLAVOR OVER VANILLA. WENT OVER OTHER SUPPLEMENT OPTIONS; PT WOULD LIKE TO RECEIVE CHOCOLATE ENSURE PUDDING. ALSO DISCUSSED THE IMPORTANCE OF DRINKING AT LEAST 1/2 OF ENSURE ENLIVE AT EACH MEAL, ESPECIALLY WITH THE CHANGE OF TF RATE FROM RUNNING 24 HOURS TO 12 HOURS. 10/20 EGD WAS (-); NO DILATION WAS DONE. PT DID EAT A SANDWICH AFTER DILATION, PER PT AND RN REPORT. CHEST TUBE OUT 10/22. SPEECH THERAPY TO SEE PT TODAY. TF BEING CHANGED TO RUN FROM [id number]. 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 THIS WILL MEET 58% OF THE LOW END OF PROTEIN NEEDS AND 54% OF THE LOW END OF KCAL NEEDS. ENSURE ENLIVE TID. EST NUTR NEEDS: 7801-2078 KCALS AND 53-64 GM PROTEIN D-AT NUTRITION RISK W/INADEQUATE NUTRIENT INTAKE R/T DIFF. SWALLOWING AEB INTAKE RECORD, NEED FOR TF, BMI <19.0, 10% WT LOSS X SEVERAL MONTHS. I-1)CHANGE VANILLA ENSURE ENLIVE TID TO STRAWBERRY ENSURE ENLIVE TID 2)ADD CHOCOLATE ENSURE PUDDING BID AT L/D M/E-GOALS: 1)PT WILL TAKE >/=50% OF ENSURE ENLIVE TID W/MEALS 2)PT WILL BE ABLE TO TOLERATE ORAL DIET 1)F/U PO INTAKE, SUPPLEMENT, TF, AND POC IN 3-5 DAYS 2)ASSIST NEEDED
--- NOTE | 2016-10-23 19:46 | NUR ---
Significant Event: A/O x3, cooperative with cares. VSS, SBPs 150-160s, HRs 70-80s, on room air. No c/o pain. Dobhoff to R) nare; tube feeding shut off this shift; will now run from [id number]. Speech therapy consulted. Dr. Moulton seen patient today. Will take patient to OR on to look at vocal cord et voice box et to do biopsies. Speech is to do a bedside eval tomorrow et call Dr. Moulton with results. Up with SBA to bathroom Follow up: NPO after midnight Wed.; consents not signed.
--- NOTE | 2016-10-24 04:50 | NUR ---
Significant Event: Patient is alert and oriented x3. Vital signs stable. On room air. No complaints of pain or nausea this shift. Tolerated mashed potatoes and popsicle well. Left chest tube dressing C/D/I. Tube feeding started at 1999 this shift per orders. Continues at 40ml/hr. Off at 0800. Stand-by assist to bathroom. Calm and cooperative with all cares. Follow up: Laryngoscopy with biopsy . NPO at midnight Sat.
[2016-10-24 06:00] LABS: CALCIUM 9.7 mg/dL (8.5-10.5); CHLORIDE 103 mMol/L (96-110); CO2 25 mMol/L (22-32); CREATININE 0.8 mg/dL (0.5-1.1); ESTIMATED GFR (MDRD EQUATION) > 60; SODIUM 136 mMol/L (135-145)
[2016-10-24 06:01] LABS: BLOOD UREA NITROGEN 15 mg/dL (6-24)
--- NOTE | 2016-10-24 19:09 | NUR ---
Significant Event:A/O X 3. Ambulates ad louisa, NO edema, SBP 140's, HR 90's. Remains on room air. Speech therapy here to eval swallowing started on mechanical soft diet, doing well. Nauseated after lunch, resolved with zofran IV last at 1400. No requests for pain med. SO is supportive at the bedside. Follow up:NPO after midnight. Laryngoscope in AM, permits signed.
--- NOTE | 2016-10-25 05:00 | NUR ---
Significant Event: Patient is alert and oriented x 3. VSS on room air. HRs in the 70s. SBPs in the 1 teens-150s. Afebrile. Up ad louisa in room. Chronic Dobhoff to right nare intact. Became NPO at midnight. Right forearm IV, saline locked. Significant other at the bedside. Patient is pleasant and cooperative with cares. Follow up: Laryngoscope this am.
--- NOTE | 2016-10-25 14:29 | NUR ---
Significant Event: Patient went down for laryngoscopy this morning around 0830. Came up from PACU at 1330. VSS. A little hyperstensive but she had'nt had her B/P meds yet. Throat is very swollen and sore. Patient is on mechanical soft diet. Started on 1L/O2 per nasal cannula. Up with 1 assist. Follow up:
[2016-10-25 16:22] LABS: ALBUMIN 3.2 gm/dL (3.5-5.0); ANION GAP 14.7 (10.0-19.0); CALCIUM 8.4 mg/dL (8.5-10.5); PHOSPHORUS 4.2 mg/dL (2.5-4.9); POTASSIUM 3.7 mMol/L (3.7-5.1)
[2016-10-25 16:26] LABS: CREATININE 1.1 mg/dL (0.5-1.1)
--- NOTE | 2016-10-26 05:15 | NUR ---
Significant Event: A/O X 3, AMBULATES STAND BY ASSIST. ALL VSS ON 1L 02, SBP'S 140'S TO 150'S, HR 60-80'S, AFEBRILE. PATIENT HAS TOLERATED MECHANICAL SOFT DIET REASONALBY WELL. NG TUBE REMAINS IN BUT NO INFUSION AT THIS TIME. MORPHINE GIVEN X 1 AT 2114 FOR BACK PAIN WITH RELIEF NOTED. Follow up: SHE WILL HAVE A CT OF THE NECK IF HER GFR HAS IMPROVED. POSSIBLE D/C TODAY.
[2016-10-26 05:58] LABS: ANION GAP 13.8 (10.0-19.0); BLOOD UREA NITROGEN 22 mg/dL (6-24); CALCIUM 8.6 mg/dL (8.5-10.5); CHLORIDE 103 mMol/L (96-110); CO2 26 mMol/L (22-32); CREATININE 0.8 mg/dL (0.5-1.1); ESTIMATED GFR (MDRD EQUATION) > 60; POTASSIUM 3.8 mMol/L (3.7-5.1); SODIUM 139 mMol/L (135-145)
--- NOTE | 2016-10-26 13:16 | NUR ---
D - NUT F/U. NG IN PLACE BUT TF STOPPED. S/P LARYNGOSCOPY. THROAT SWOLLWEN/SORE. ENC PO INATKE. LASB: ACCUCHECK WNL, GLU 105, ALB 3.2 MEDS: HYDRODIURIL, ALDACTONE, PROTONIX, NAUSEA DIET: CARDIAC, MECH-SOFT. INTAKE: 25-75% ENSURE TID, ENSURE PUDDING @ L&D NEEDS: 6857-8407 KCAL, 53-64 G PRO D - INADEQUATE NUTRIENT INTAKE AT TIMES R/T DECREASED APPETITE AEB INTAKE RECORD. I - GOAL FOR INTAKE 50-75% BY NEXT ASSESSMENT. WILL CONTINUE CURRENT SUPPLEMENTS. M/E - WILL MONITOR INTAKE. F/U IN 4-5 DAYS.
--- NOTE | 2016-10-26 17:26 | NUR ---
Significant Event: AOx3, SBP 140s-160s, O2 0-1 L per nasal cannula to keep sats >90%. L) lung dim and has some crackles. Chest xray this a.m. showed pneumothorax again, Dr Stout aware and monitoring. Dobhoff remains in and clamped. Tolerating soft diet well. C/o throat being sore, and left side. [place] x1 this a.m. and morphine being given now. Did c/o "stomach hurting"; walked hallway and this resolved. SL x2 both flush well. SBA and steady. Pleasant and cooperative. Follow up: Notify Dr Stout for any change in respiratory status. Chest xray in a.m.
--- NOTE | 2016-10-27 05:09 | NUR ---
Significant Event: Patient alert and oriented. Up with standby assist. Pressures 150-160s/70-80s. Rates 60-70s. Remains on room air. Rested throughout shift. Pleasant and cooperative with cares. Follow up: possible discharge today
[2016-10-27 06:08] LABS: ANION GAP 12.8 (10.0-19.0); BLOOD UREA NITROGEN 18 mg/dL (6-24); CHLORIDE 100 mMol/L (96-110); CO2 28 mMol/L (22-32); CREATININE 0.8 mg/dL (0.5-1.1); ESTIMATED GFR (MDRD EQUATION) > 60; POTASSIUM 3.8 mMol/L (3.7-5.1); SODIUM 137 mMol/L (135-145)
--- NOTE | 2016-10-27 12:06 | NUR ---
Speech Therapy: Briefly spoke with pt over lunch. Pt reports that she feels even better today and isn't having any difficulty with swallowing. Recommended to that if she notices changed in her swallowing or voice, to contact her doctor and speech Tx can be consulted as out pt services if needed. Pt reports d/c today. Eli Olmos M.A., CCC-CR[employer]HER [employer]EMAN
[2016-10-27] MEDS ORDERED: LIPITOR80 MG PO (12:16)
[2016-10-27] MEDS ORDERED: HYDRODIURIL25 MG PO (12:21)
[2016-10-27] MEDS ORDERED: ALDACTONE25 MG PO (12:22)
[2016-10-27] MEDS ORDERED: COZAAR50 MG PO (12:25)
--- NOTE | 2016-10-27 14:56 | NUR ---
DISMISSAL NOTE: Patient states she feels comfortable going home at this time. Teaching provided by this nurse on IS, self-monitoring of blood pressure at home, reinforcement of patient's decision to stop smoking, call physician or 911 for increased dyspnea, chest pain, fainting, or feeling that "something is wrong". Patient plans to phone Dr Kruse and Dr Dumont's offices Saturday for follow up appts. SBP has been 130s-150s this shift, VS otherwise WNL on room air. Has ambulated independently with in hallway more than once today and tolerates well. Pain has been more under control today as well. VS and assessments as charted. Patient transported from room by this nurse at 1416 to west [facility] front doors for transportation home by family.
== END 2016-10-27 14:16 | disposition disaster alternative care site (69) | DRG 205 ==
LOC: GMED 15:04 → GPCU 18:41
PROVIDERS: Family Medicine; ADMIT Family Medicine
PROC: 4A023N7 Measurement of Cardiac Sampling and Pressure, Left Heart, Percutaneous Approach (ICD-10-PCS; 2016-10-18)
PROC: 4A033BC Measurement of Arterial Pressure, Coronary, Percutaneous Approach (ICD-10-PCS; 2016-10-18)
PROC: B2111ZZ Fluoroscopy of Multiple Coronary Arteries using Low Osmolar Contrast (ICD-10-PCS; 2016-10-18)
PROC: 0BBG3ZX Excision of Left Upper Lung Lobe, Percutaneous Approach, Diagnostic (ICD-10-PCS; 2016-10-19)
PROC: 0DH67UZ Insertion of Feeding Device into Stomach, Via Natural or Artificial Opening (ICD-10-PCS; 2016-10-20)
PROC: 0W9B30Z Drainage of Left Pleural Cavity with Drainage Device, Percutaneous Approach (ICD-10-PCS; 2016-10-20)
PROC: 0DB38ZX Excision of Lower Esophagus, Via Natural or Artificial Opening Endoscopic, Diagnostic (ICD-10-PCS; 2016-10-20)
PROC: 0DB68ZX Excision of Stomach, Via Natural or Artificial Opening Endoscopic, Diagnostic (ICD-10-PCS; 2016-10-20)
PROC: 0DB18ZX Excision of Upper Esophagus, Via Natural or Artificial Opening Endoscopic, Diagnostic (ICD-10-PCS; 2016-10-20)
PROC: 3E0F83Z Introduction of Anti-inflammatory into Respiratory Tract, Via Natural or Artificial Opening Endoscopic (ICD-10-PCS; principal; 2016-10-25)
PROC: 0CBS8ZX Excision of Larynx, Via Natural or Artificial Opening Endoscopic, Diagnostic (ICD-10-PCS; principal; 2016-10-25)
DX: R91.1 Solitary pulmonary nodule (principal); I21.4 Non-ST elevation (NSTEMI) myocardial infarction; J38.4 Edema of larynx; E46 Unspecified protein-calorie malnutrition; R13.19 Other dysphagia; J95.811 Postprocedural pneumothorax; Z68.23 Body mass index [BMI] 23.0-23.9, adult; Y84.8 Other medical procedures as the cause of abnormal reaction of the patient, or of later complication, without mention of misadventure at the time of the procedure; E87.6 Hypokalemia; I10 Essential (primary) hypertension; J44.9 Chronic obstructive pulmonary disease, unspecified; K21.9 Gastro-esophageal reflux disease without esophagitis; G25.81 Restless legs syndrome; G89.29 Other chronic pain; M54.9 Dorsalgia, unspecified; F17.210 Nicotine dependence, cigarettes, uncomplicated; I25.10 Atherosclerotic heart disease of native coronary artery without angina pectoris; R53.1 Weakness
CPT/HCPCS: A9270; C1760; C1769; C1887; J0153; J0171; J0583; J1100; J1644; J2001; J2250; J2270; J2405; J3010; J3301; J3480; J7030; J7050; J7060; Q9967

== ENCOUNTER 2016-10-31 21:21 | Emergency (ER) | payer OTHER ==
--- NOTE | ~2016-10-31 | ER ---
PATIENT'S NAME: [facility]Y [facility] AGE: 56 Y [address] ROOM: [place] [address] LOCATION: [facility] ADMIT DATE: 10/31/2016 ER/Outpatient Report DISCHARGE DATE: 11/01/2016 FAMILY PHYSICIAN: Jose Rivero MD ATTENDING PHYSICIAN: Óscar Tovar Admission date and time are documented on the medical record. I saw the patient at 2150 hours. CHIEF COMPLAINT: Nausea, vomiting, diarrhea, abdominal pain, chest pain, and shortness of breath. HISTORY OF PRESENT ILLNESS: This patient is a 56-year-old female who was released from the hospital on October 27 of this year and spent 10 days in the hospital. She has not felt well since dismissal and has not been eating or drinking very much over the past 4 days. She has had dry heaving with nausea and multiple watery diarrhea stools. The patient was quite lethargic and ill when she came in. Blood pressure was 142/72, pulse of 92. She is afebrile. She had some generalized chest pain especially on the left anterior chest. No real shortness of breath. Kind of upper abdominal pain. No distention. No urinary frequency, urgency, or dysuria. No lightheadedness, dizziness, syncope, or near syncope. No fall or trauma. No headache, eyes, ears, nose, throat, neck, or spine pain. No joint or muscle swelling, redness, or pain. No skin eruptions or rash. No history of endocrine problems, neuro changes, or psych issues. HOME MEDICATIONS: See attached medication list. ALLERGIES: NONE. SOCIAL HISTORY: The patient stopped smoking October 05 of this year. Occasional intake of alcohol. SIGNIFICANT PAST MEDICAL HISTORY: Atherosclerotic ischemic heart disease with coronary artery disease, hypertension, tobacco abuse, lumbar spinal stenosis, stress incontinence, restless legs syndrome, allergic rhinitis, COPD, chronic bronchitis, non- STEMI, CT, and lung mass. OPERATIONS: Laryngoscopy, esophagogastroduodenoscopy, back surgery, hysterectomy, cardiac PATIENT'S NAME: [facility] AGE: 56 Y [address] ROOM: [place] [address] LOCATION: [facility] ADMIT DATE: 10/31/2016 ER/Outpatient Report DISCHARGE DATE: 11/01/2016 FAMILY PHYSICIAN: Jose Rivero MD ATTENDING PHYSICIAN: Óscar Tovar catheterization, appendectomy, chest tube placement for collapsed lung, and lung biopsy. REVIEW OF SYSTEMS: All systems reviewed by me are negative with the exception of those discussed in the history of present illness. PHYSICAL EXAMINATION: VITAL SIGNS: Temperature 98.1, tympanic, pulse 92, respirations 18, blood pressure 142/72, and O2 sat on room air is 100%. HEAD: Normocephalic. EYES: Extraocular muscles intact. PERRL. EARS: Clear TMs bilaterally. NOSE AND THROAT: Clear. Mucous membranes dry. NECK: No nuchal rigidity. No thyromegaly or cervical adenopathy. LUNGS: Clear. No rales, rhonchi, or wheezes. Good airflow in all lung graves. HEART: Regular. Pulses are palpable. The patient has tenderness to palpation over her anterior chest mainly in the left. Reproduces her chest pain. ABDOMEN: Soft and tenderness to palpation in the upper abdomen. No palpable masses. No organomegaly. No CVA tenderness. EXTREMITIES: No peripheral edema, cyanosis, or deformity. NEUROVASCULAR: Intact. SKIN: Clear. No skin eruptions or rash. LABORATORY DATA: White count was 16,900, 76 segs, 14 lymphs, 8 monos, 1 eo, hemoglobin was 14.6 with hematocrit 41.8, and platelet count is 483,000. Sed rate was elevated 57, PTT was 24, pro-time is 11.4 with an INR 1.1. CPK was 42, CK-MB was 0.9, troponin was 0.08. CRP was 2. Urine showed rare whites, negative reds, 0-2 epithelial cells, rare bacteria, 2+ amorphous material, 2-5 hyaline casts, specific gravity 1.015. CMS was normal except for an elevated BUN of 44, elevated creatinine 2.0, low GFR 26, amylase and lipase were normal, lactate was 2.2, procalcitonin was 0.09. EMERGENCY DEPARTMENT COURSE: I did give the patient 2 L normal saline IV in the emergency room, fentanyl 25 mcg for pain, Zofran 4 mg for nausea, vomiting. The patient's condition markedly improved with rehydration. Abdominal pain went away. IMPRESSION: 1. Nausea, vomiting, and diarrhea with dehydration. 2. Acute renal insufficiency, secondary to dehydration. 3. Atherosclerotic ischemic heart disease with coronary artery disease. PATIENT'S NAME: [facility] AGE: 56 Y [address] ROOM: [place] [address] LOCATION: [facility] ADMIT DATE: 10/31/2016 ER/Outpatient Report DISCHARGE DATE: 11/01/2016 FAMILY PHYSICIAN: Jose Rivero MD ATTENDING PHYSICIAN: Óscar Tovar 4. Hypertension. 5. Tobacco abuse. 6. History of chronic obstructive pulmonary disease with chronic bronchitis. PLAN: I rehydrated the patient with 2 L normal saline. Controlled her abdominal pain with fentanyl and her nausea with Zofran. Dismissed the patient home. Clear liquid diet for 24 hours and advance diet as tolerated. Continue present home medications and care. Zofran 4 mg ODT sublingual as needed for nausea, vomiting. Follow up with personal physician in 1 to 2 days for recheck and recheck blood chemistry and kidney function. Discussion ensued with the patient and her in regards to my findings and recommendations, they understand. ÓSCAR TOVAR MD SDS/modl /[id number] d: 11/01/1622 t: 11/06/16 1821, OUTPATIENT REPORT
[~2016-10-31 21:21] MED LIST: ALDACTONE25 MG PO; BREO ELLIPTA 11 EACH INH; COZAAR50 MG PO; DUONEB INH; FLEXERIL10 MG PO; HYDRODIURIL25 MG PO; LIPITOR80 MG PO; LOSARTAN-HCTZ1 EACH PO; NORCO 5-325 TA1 EACH PO; NORVASC5 MG PO; PRILOSEC20 MG PO; TOPROL XL 5050 MG PO
[2016-10-31 22:26] LABS: BASOPHIL # 0.1 K/uL (0.0-0.2); BASOPHIL % 0.4 %; EOSINOPHIL # 0.1 K/uL (0.0-0.5); EOSINOPHIL % 0.5 %; HEMATOCRIT 41.8 % (33.0-46.0); HEMOGLOBIN 14.6 g/dL (10.0-15.0); IMMATURE GRANULOCYTE # 0.2 K/uL (0.0-0.3); IMMATURE GRANULOCYTE % 1.1 %; LYMPHOCYTE # 2.3 K/uL (0.8-4.0); LYMPHOCYTE % 13.7 %; MCHC 34.9 gm/dL (32.0-36.5); MCV 85.8 fl (83.0-98.0); MONOCYTE # 1.4 K/uL (0.0-1.0); MONOCYTE % 8.4 %; MPV 10.2 fl (9.4-12.4); NEUTROPHIL # (ANC) 12.8 K/uL (1.8-7.8); NEUTROPHIL % 75.9 %; NRBC % 0 /100WBC (0-0.00); PLATELET COUNT 483 K/uL (150-450); RBC 4.87 M/uL (3.50-5.50); RDW-CV 13.2 % (11.9-14.6); WBC 16.9 K/uL (4.0-11.0)
[2016-10-31 22:36] LABS: INR - (THERAPEUTIC) 1.1 (0.9-1.1); PROTIME 11.4 SECONDS (9.6-11.1); PTT 24 SECONDS (25-32)
[2016-10-31 23:13] LABS: ALBUMIN 3.4 gm/dL (3.5-5.0); ANION GAP 21.9 (10.0-19.0); CALCIUM 9.2 mg/dL (8.5-10.5); POTASSIUM 3.9 mMol/L (3.7-5.1); TOTAL PROTEIN 7.3 g/dL (6.0-8.4)
[2016-10-31 23:14] LABS: TOTAL BILIRUBIN 0.7 mg/dL (0.0-1.5)
[2016-11-01 00:01] LABS: BILIRUBIN URINE NEGATIVE (NEGATIVE); BLOOD URINE NEGATIVE /UL (NEGATIVE); COLOR URINE YELLOW (YELLOW); GLUCOSE URINE NEGATIVE (NEGATIVE); KETONE URINE 50 mg/dL (NEGATIVE); LEUKOCYTES URINE NEGATIVE /UL (NEGATIVE); NITRITE URINE NEGATIVE (NEGATIVE); PROTEIN URINE 15 mg/dL (NEGATIVE); SPEC GRAVITY URINE 1.015 (1.003-1.035); TURBIDITY URINE 1+ (CLEAR); UROBILINOGEN URINE NORMAL (NORMAL)
[2016-11-01 00:08] LABS: BACTERIA URINE RARE (NEGATIVE); EPITHELIAL URINE 0-2 #/HPF (NEGATIVE); RBC URINE NEGATIVE #/HPF (NEGATIVE); WBC URINE RARE #/HPF (NEGATIVE)
[2016-11-01 00:09] LABS: AMORPHOUS URINE 2+ (NEGATIVE)
== END 2016-11-01 01:52 | disposition disaster alternative care site (69) ==
LOC: GMED 21:21
PROVIDERS: Emergency Medicine
PROC: 0T9B70Z Drainage of Bladder with Drainage Device, Via Natural or Artificial Opening (ICD-10-PCS; principal; 2016-11-01)
DX: E86.0 Dehydration (principal); N28.9 Disorder of kidney and ureter, unspecified; I25.10 Atherosclerotic heart disease of native coronary artery without angina pectoris; I10 Essential (primary) hypertension; F17.200 Nicotine dependence, unspecified, uncomplicated; J44.9 Chronic obstructive pulmonary disease, unspecified; I25.2 Old myocardial infarction; Z90.710 Acquired absence of both cervix and uterus; Z90.49 Acquired absence of other specified parts of digestive tract
CPT/HCPCS: J2405; J3010; J7030

== ENCOUNTER → 2017-05-02 | Outpatient (CLI) | payer OTHER | END | disposition disaster alternative care site (69) | LOC: GRAD 12:32 | DX: R13.10 Dysphagia, unspecified (principal); J38.01 Paralysis of vocal cords and larynx, unilateral ==